=== PATIENT | female | born 1995 | race Caucasian/White ===

== ENCOUNTER 2020-08-31 01:14 | Inpatient (IN) | payer MEDICAID ==
[~2020-08-31] VITALS: Ht 152.4 cm; Wt 70.0 kg
[2020-08-31] VITALS (13 sets, daily range): BP systolic 114–159; BP diastolic 57–86
[2020-08-31] MEDS ORDERED: azithromycin/NS 500mg/250ml 250 ML IV ONE (01:50)
[2020-08-31] MEDS ORDERED: normal saline 1000ML IV soln IV ONE (01:50)
[2020-08-31] MEDS ORDERED: dexamethasone sod phosphate 10mg/ml inj IV ONE (01:55)
[2020-08-31 02:00] LABS: BASOPHILS # (AUTO) 0.1 X10'3 (0-0.2); BASOPHILS % (AUTO) 0.4 % (0-1); EOSINOPHILS # (AUTO) 0.3 X10'3 (0-0.9); EOSINOPHILS % (AUTO) 1.6 % (0-6); LYMPHOCYTES # (AUTO) 3.4 X10'3 (1.1-4.8); LYMPHOCYTES % (AUTO) 19.2 % (21-51); MEAN CORPUSCULAR HEMOGLOBIN 28.5 PG (27.0-31.0); MEAN CORPUSCULAR VOLUME 86.2 FL (78-98); MEAN PLATELET VOLUME 7.5 FL (7.4-10.4); MONOCYTES # (AUTO) 0.6 X10'3 (0-0.9); MONOCYTES % (AUTO) 3.5 % (2-12); NEUTROPHILS # (AUTO) 13.2 X10'3 (1.8-7.7); NEUTROPHILS % (AUTO) 75.3 % (42-75); PLATELET COUNT 477 X10'3 (140-440); RED BLOOD COUNT 2.43 X10'6 (4.20-5.60); WHITE BLOOD COUNT 17.5 X10'3 (4.5-11.0)
[2020-08-31 02:11] LABS: HEMATOCRIT 20.9 % (35.0-45.0); HEMOGLOBIN 6.9 g/dl (12.0-16.0)
[2020-08-31] MEDS ORDERED: iohexol 350MG/ML 100ml bottle IV ONE (02:12)
[2020-08-31 02:30] LABS: ALANINE AMINOTRANSFERASE 22 U/L (12-78); ALBUMIN 3.4 G/DL (3.4-5.0); ALBUMIN/GLOBULIN RATIO 1.1 (1.1-1.5); ALKALINE PHOSPHATASE 82 IU/L (46-116); ANION GAP 10 (8-16); ASPARTATE AMINO TRANSFERASE 20 U/L (10-37); BLOOD UREA NITROGEN 17 MG/DL (7-18); BUN/CREATININE RATIO 19.5 (6.6-38.0); CALCIUM 8.6 MG/DL (8.5-10.1); CHLORIDE 105 MMOL/L (99-107); CREATININE 0.87 MG/DL (0.40-0.90); GLUCOSE 160 MG/DL (70-104); POTASSIUM 3.1 MMOL/L (3.5-5.1); SODIUM 141 MMOL/L (135-145); TOTAL CARBON DIOXIDE 26.1 MMOL/L (24-32); TOTAL PROTEIN 6.4 G/DL (6.4-8.2); eGFR 81 ML/MIN
[2020-08-31 02:44] LABS: C-REACTIVE PROTEIN 1.22 MG/DL (0.0-0.5); FERRITIN 66 NG/ML (8-252); LACTATE DEHYDROGENASE 411 U/L (81-234); MAGNESIUM 1.8 MG/DL (1.5-2.4)
[2020-08-31 03:36] LABS: HCG SERUM QL NEGATIVE
[2020-08-31] MEDS ORDERED: NO HOME MEDS (03:44)
[2020-08-31] MEDS ORDERED: normal saline 1000ML IV soln IVB ONE (03:45)
[2020-08-31] MEDS ORDERED: potassium Cl 20 mEq SR tablet PO PRN (04:15)
[2020-08-31] MEDS: normal saline 1000ml 1,000 ML IV SCH ×2 (04:15→12:50)
[2020-08-31] MEDS ORDERED: magnesium hydroxide 30ml (MOM) UD suspension PO PRN (04:15)
[2020-08-31] MEDS ORDERED: ondansetron/PF 4mg/2ml inj IV PRN (04:15)
[2020-08-31] MEDS ORDERED: acetaminophen 325mg tablet PO PRN ×2 (04:15)
[2020-08-31] MEDS ORDERED: magnesium 4gm in 100ml NS 100 ML IV PRN (04:15)
[2020-08-31] MEDS ORDERED: ipratropium/albuterol 3ml nebule NEB PRN (04:15)
[2020-08-31] MEDS ORDERED: magnesium 2GM in 50ml NS 50 ML IV PRN (04:15)
[2020-08-31] MEDS ORDERED: potassium Cl 40MEQ/1/2NS 520ml 520 ML IV PRN ×2 (04:15)
[2020-08-31] MEDS ORDERED: HYDROcodone/acetaminophen 10/325mg tab PO PRN (04:15)
[2020-08-31] MEDS ORDERED: HYDROcodone/acetaminophen 5mg/325mg tablet PO PRN (04:15)
[2020-08-31 05:41] LABS: % IRON SATURATION 8 % (11-46); IRON 22 UG/DL (49-151); TOTAL IRON BINDING CAPACITY 277 UG/DL (259-388)
[2020-08-31 05:49] LABS: RED BLOOD COUNT 2.44 X10'6 (4.20-5.60); RETICULOCYTE % (AUTO) 7.8 % (0.5-1.5)
[2020-08-31 06:02] LABS: ETHANOL < 0.010 GM/DL (0.0-0.010)
[2020-08-31 06:03] LABS: PARTIAL THROMBOPLASTIN TIME 20 SECONDS (22-32)
--- NOTE | 2020-08-31 06:44 | NUR ---
as per linda rn report dr rankin cancelled the order for iv maintence fluid at 100 ml/hr as pt is already receving the bld transfusion.
[2020-08-31] MEDS: CefTRIAXone/D5W-Rocephin 1gm 50 ML IV SCH (07:41)
[2020-08-31] MEDS: oseltamivir phos 75mg capsule PO SCH (07:42)
[2020-08-31] MEDS: potassium Cl 20 mEq SR tablet PO PRN ×2 (07:43→15:07)
[2020-08-31] MEDS: K and/or MAG REPLACEMENT MC SCH ×2 (07:57→20:00)
[2020-08-31] MEDS ORDERED: dexamethasone inj 6 MG in normal saline 100ml IV soln 100 ML IV SCH (08:00)
[2020-08-31 09:37] LABS: BASOPHILS # (AUTO) 0.1 X10'3 (0-0.2); BASOPHILS % (AUTO) 0.4 % (0-1); EOSINOPHILS % (AUTO) 0 % (0-6); HEMATOCRIT 33.9 % (35.0-45.0); LYMPHOCYTES % (AUTO) 5.7 % (21-51); MEAN CORPUSCULAR HEMOGLOBIN 28.2 PG (27.0-31.0); MEAN CORPUSCULAR HGB CONC 32.6 g/dL (33.0-36.5); MEAN CORPUSCULAR VOLUME 86.6 FL (78-98); MEAN PLATELET VOLUME 8.5 FL (7.4-10.4); MONOCYTES # (AUTO) 0.3 X10'3 (0-0.9); MONOCYTES % (AUTO) 1.7 % (2-12); NEUTROPHILS # (AUTO) 16.4 X10'3 (1.8-7.7); NEUTROPHILS % (AUTO) 92.2 % (42-75); PLATELET COUNT 458 X10'3 (140-440); RED BLOOD COUNT 3.91 X10'6 (4.20-5.60); RED CELL DISTRIBUTION WIDTH 13.4 % (11.5-14.5); WHITE BLOOD COUNT 17.8 X10'3 (4.5-11.0)
--- NOTE | 2020-08-31 10:04 | NUR ---
Patient in room ED 2. I have received report from ER nurse and had the opportunity to ask questions and assume patient care.
[2020-08-31 10:17] LABS: ALANINE AMINOTRANSFERASE 21 U/L (12-78); ALBUMIN 3.4 G/DL (3.4-5.0); ALBUMIN/GLOBULIN RATIO 1.1 (1.1-1.5); ALKALINE PHOSPHATASE 81 IU/L (46-116); ANION GAP 11 (8-16); ASPARTATE AMINO TRANSFERASE 26 U/L (10-37); BLOOD UREA NITROGEN 13 MG/DL (7-18); BUN/CREATININE RATIO 19.7 (6.6-38.0); CALCIUM 8.3 MG/DL (8.5-10.1); CHLORIDE 110 MMOL/L (99-107); CREATININE 0.66 MG/DL (0.40-0.90); GLUCOSE 157 MG/DL (70-104); POTASSIUM 3.9 MMOL/L (3.5-5.1); SODIUM 144 MMOL/L (135-145); TOTAL CARBON DIOXIDE 22.8 MMOL/L (24-32); TOTAL PROTEIN 6.5 G/DL (6.4-8.2); eGFR > 90 ML/MIN
[2020-08-31] MEDS: DEXAMETHASONE 6 MG TABLET PO SCH (15:07)
--- NOTE | 2020-08-31 18:43 | NUR ---
Patient report given, questions answered & plan of care reviewed with KIANA Hannah. Pt resting comfortably. No c/o SOB. O2sat drop to mid 80s with exertion.
[2020-08-31] MEDS: mag hydrox/Alum hydrox/simeth 30ml oral suspension PO PRN (19:12)
[2020-08-31] MEDS: lactobacillus rhamnosus 10,000 MMU CELLS/CAPSULE PO SCH (20:43)
[2020-08-31] MEDS ORDERED: temazepam 15mg capsule PO PRN (21:00)
[2020-09-01] MEDS: normal saline 1000ml 1,000 ML IV SCH ×3 (00:07→19:19)
[2020-09-01 05:48] LABS: BASOPHILS # (AUTO) 0.1 X10'3 (0-0.2); BASOPHILS % (AUTO) 0.6 % (0-1); EOSINOPHILS % (AUTO) 0.1 % (0-6); HEMATOCRIT 29.3 % (35.0-45.0); HEMOGLOBIN 9.7 g/dl (12.0-16.0); LYMPHOCYTES # (AUTO) 2.8 X10'3 (1.1-4.8); LYMPHOCYTES % (AUTO) 12.9 % (21-51); MEAN CORPUSCULAR HEMOGLOBIN 28.8 PG (27.0-31.0); MEAN CORPUSCULAR VOLUME 87.3 FL (78-98); MEAN PLATELET VOLUME 8.3 FL (7.4-10.4); MONOCYTES # (AUTO) 1.2 X10'3 (0-0.9); MONOCYTES % (AUTO) 5.4 % (2-12); NEUTROPHILS # (AUTO) 17.6 X10'3 (1.8-7.7); PLATELET COUNT 436 X10'3 (140-440); RED BLOOD COUNT 3.36 X10'6 (4.20-5.60); WHITE BLOOD COUNT 21.8 X10'3 (4.5-11.0)
[2020-09-01 06:17] LABS: ALANINE AMINOTRANSFERASE 22 U/L (12-78); ALBUMIN 3.5 G/DL (3.4-5.0); ALBUMIN/GLOBULIN RATIO 1.1 (1.1-1.5); ALKALINE PHOSPHATASE 72 IU/L (46-116); ANION GAP 10 (8-16); ASPARTATE AMINO TRANSFERASE 25 U/L (10-37); BILIRUBIN,TOTAL 1.1 MG/DL (0.1-1.0); BLOOD UREA NITROGEN 12 MG/DL (7-18); BUN/CREATININE RATIO 22.2 (6.6-38.0); C-REACTIVE PROTEIN 1.56 MG/DL (0.0-0.5); CALCIUM 8.4 MG/DL (8.5-10.1); CHLORIDE 109 MMOL/L (99-107); CHOL/HDL RATIO 3.6 (0.00-4.99); CHOLESTEROL 171 MG/DL (0-200); CREATININE 0.54 MG/DL (0.40-0.90); GLUCOSE 119 MG/DL (70-104); HDL CHOLESTEROL 47 MG/DL (35-60); LACTATE DEHYDROGENASE 674 U/L (81-234); LDL CHOLESTEROL 109 MG/DL (50-100); MAGNESIUM 2.1 MG/DL (1.5-2.4); POTASSIUM 4.1 MMOL/L (3.5-5.1); SODIUM 143 MMOL/L (135-145); TOTAL CARBON DIOXIDE 23.6 MMOL/L (24-32); TOTAL PROTEIN 6.7 G/DL (6.4-8.2); TRIGLYCERIDES 167 MG/DL (20-135); eGFR > 90 ML/MIN
--- NOTE | 2020-09-01 06:32 | NUR ---
Problems reprioritized. Patient report given, questions answered & plan of care reviewed with MYAH. Addendum: 09/01/20 at 0633 by Deion Bay RN Amended: Links added.
--- NOTE | 2020-09-01 06:38 | NUR ---
Patient in room [facility]. I have received report from KIANA Hannah and had the opportunity to ask questions and assume patient care.
[2020-09-01 07:00] VITALS: BP 114/61
[2020-09-01 07:28] LABS: D-DIMER 1.88 MG/L FEU (0-0.50)
[2020-09-01] MEDS: K and/or MAG REPLACEMENT MC SCH ×2 (08:00→20:00)
[2020-09-01] MEDS: CefTRIAXone/D5W-Rocephin 1gm 50 ML IV SCH (08:30)
[2020-09-01] MEDS: mag hydrox/Alum hydrox/simeth 30ml oral suspension PO PRN ×3 (08:30→17:14)
[2020-09-01] MEDS: azithromycin 250mg tablet PO SCH (08:31)
[2020-09-01] MEDS: oseltamivir phos 75mg capsule PO SCH (08:31)
[2020-09-01] MEDS: lactobacillus rhamnosus 10,000 MMU CELLS/CAPSULE PO SCH ×2 (08:31→19:18)
[2020-09-01] MEDS: DEXAMETHASONE 6 MG TABLET PO SCH (08:31)
--- NOTE | 2020-09-01 12:05 | NUR ---
Malnutrition Consult: Pt admit w/ normal strength, no edema/wounds, PO 75-100% avg regular diet so far, and no scaled wt yet this admit. At this time pt does not meet minimum malnutrition criteria. To f/u 09/05 for initial assessment. Addendum: 09/01/20 at [address] Amended: Links added.
[2020-09-01] MEDS: guaiFENesin/codeine phos 10ml UD oral syrup PO PRN ×2 (13:02→19:18)
[2020-09-01 13:03] VITALS: BP 118/74
[2020-09-01 18:00] VITALS: BP 115/67
--- NOTE | 2020-09-01 18:33 | NUR ---
Problems reprioritized. Patient report given, questions answered & plan of care reviewed with KIANA Atkins.
[2020-09-02] VITALS: BP 123/73
--- NOTE | 2020-09-02 04:47 | NUR ---
Pt appeared hot when entering room. Checked temp at 98.0.
[2020-09-02] MEDS: guaiFENesin/codeine phos 10ml UD oral syrup PO PRN ×2 (04:48→09:50)
--- NOTE | 2020-09-02 06:15 | NUR ---
Problems reprioritized. Patient report given, questions answered & plan of care reviewed with KIANA Sandoval.
--- NOTE | 2020-09-02 06:17 | NUR ---
Patient in room [facility]. I have received report from KIANA Atkins and had the opportunity to ask questions and assume patient care.
[2020-09-02 06:25] LABS: BASOPHILS # (AUTO) 0.1 X10'3 (0-0.2); BASOPHILS % (AUTO) 0.4 % (0-1); EOSINOPHILS # (AUTO) 0.2 X10'3 (0-0.9); EOSINOPHILS % (AUTO) 0.7 % (0-6); HEMATOCRIT 28.6 % (35.0-45.0); HEMOGLOBIN 9.4 g/dl (12.0-16.0); LYMPHOCYTES # (AUTO) 5.2 X10'3 (1.1-4.8); LYMPHOCYTES % (AUTO) 23.2 % (21-51); MEAN CORPUSCULAR HEMOGLOBIN 29.2 PG (27.0-31.0); MEAN CORPUSCULAR HGB CONC 32.9 g/dL (33.0-36.5); MEAN CORPUSCULAR VOLUME 88.6 FL (78-98); MEAN PLATELET VOLUME 7.7 FL (7.4-10.4); MONOCYTES # (AUTO) 1.3 X10'3 (0-0.9); MONOCYTES % (AUTO) 5.8 % (2-12); NEUTROPHILS # (AUTO) 15.5 X10'3 (1.8-7.7); NEUTROPHILS % (AUTO) 69.9 % (42-75); PLATELET COUNT 464 X10'3 (140-440); RED BLOOD COUNT 3.23 X10'6 (4.20-5.60); WHITE BLOOD COUNT 22.2 X10'3 (4.5-11.0)
[2020-09-02 06:28] LABS: ALANINE AMINOTRANSFERASE 20 U/L (12-78); ALBUMIN 3.5 G/DL (3.4-5.0); ALBUMIN/GLOBULIN RATIO 1.1 (1.1-1.5); ALKALINE PHOSPHATASE 67 IU/L (46-116); ANION GAP 10 (8-16); ASPARTATE AMINO TRANSFERASE 12 U/L (10-37); BILIRUBIN,TOTAL 0.9 MG/DL (0.1-1.0); BLOOD UREA NITROGEN 14 MG/DL (7-18); BUN/CREATININE RATIO 21.9 (6.6-38.0); C-REACTIVE PROTEIN 0.61 MG/DL (0.0-0.5); CALCIUM 8.4 MG/DL (8.5-10.1); CHLORIDE 107 MMOL/L (99-107); CREATININE 0.64 MG/DL (0.40-0.90); GLUCOSE 90 MG/DL (70-104); LACTATE DEHYDROGENASE 543 U/L (81-234); POTASSIUM 3.4 MMOL/L (3.5-5.1); SODIUM 144 MMOL/L (135-145); TOTAL CARBON DIOXIDE 26.6 MMOL/L (24-32); TOTAL PROTEIN 6.6 G/DL (6.4-8.2); eGFR > 90 ML/MIN
[2020-09-02 06:31] LABS: D-DIMER 6.04 MG/L FEU (0-0.50)
[2020-09-02] MEDS: CefTRIAXone/D5W-Rocephin 1gm 50 ML IV SCH (07:49)
[2020-09-02] MEDS: DEXAMETHASONE 6 MG TABLET PO SCH (07:49)
[2020-09-02] MEDS: oseltamivir phos 75mg capsule PO SCH (07:49)
[2020-09-02] MEDS: azithromycin 250mg tablet PO SCH (07:49)
[2020-09-02] MEDS: lactobacillus rhamnosus 10,000 MMU CELLS/CAPSULE PO SCH ×2 (07:49→20:21)
[2020-09-02] MEDS: normal saline 1000ml 1,000 ML IV SCH ×3 (07:51→20:00)
[2020-09-02 07:55] VITALS: BP 106/63
[2020-09-02] MEDS: mag hydrox/Alum hydrox/simeth 30ml oral suspension PO PRN (07:59)
[2020-09-02] MEDS: K and/or MAG REPLACEMENT MC SCH ×2 (08:00→20:09)
[2020-09-02 09:41] LABS: NUCLEATED RED BLOOD CELLS 4 /100WBC (0-0); TOTAL CELLS COUNTED 100
[2020-09-02 09:50] LABS: PLATELET ESTIMATE NORMAL
[2020-09-02] MEDS: potassium Cl 20 mEq SR tablet PO PRN ×2 (09:50→20:22)
[2020-09-02 09:51] LABS: POLYCHROMASIA FEW
[2020-09-02 10:34] LABS: ABG BASE EXCESS -4.2 mmol/L (-2.0-2.0); ABG HCO3 19.5 mmol/L (22.0-26.0); ABG OXYGEN SATURATION 94.1 % (94-97); ABG PCO2 (T) 30.8 mmHg (32.0-45.0); ABG PO2 (T) 69.3 mmHg (75.0-100.0); ALLEN'S TEST POSITIVE; FCOHb 0.2 % (0.0-3.9); FLOW 5 L/min; FMetHb 0.3 % (0.0-1.5); FO2Hb 93.6 % (94-97); TOTAL HEMOGLOBIN 9.6 G/dl (12.0-16.0)
[2020-09-02] MEDS ORDERED: iohexol 350MG/ML 100ml bottle IV ONE (10:38)
[2020-09-02 10:58] VITALS: BP 118/73
--- NOTE | 2020-09-02 12:16 | NUR ---
[facility] and pill bottle famotidine. Phone physician assistant primary care given to patient but educated patient that she is not able to keep in room and will need DrClara's order. Patient states that she normally takes famotidine 20mg once a day and maalox is not as helpful. Dr. Montiel notified. Pill bottle sent to be stored in pharmacy.
[2020-09-02] MEDS: famotidine 20mg tablet PO SCH (12:56)
[2020-09-02] MEDS ORDERED: heparin 10,000 units/1 ML INJ IV ONE (14:05)
[2020-09-02 14:59] LABS: PARTIAL THROMBOPLASTIN TIME 22 SECONDS (22-32)
[2020-09-02] MEDS: heparin 25,000 UNIT/250ml bag 250 ML IV SCH ×2 (15:36→23:42)
--- NOTE | 2020-09-02 16:41 | NUR ---
c2 tactical analysis technician in with patient.
[2020-09-02 18:00] VITALS: BP 113/66
--- NOTE | 2020-09-02 18:36 | NUR ---
Problems reprioritized. Patient report given, questions answered & plan of care reviewed with KIANA Fry.
--- NOTE | 2020-09-02 19:25 | NUR ---
Patient in room [facility]. I have received report from KIANA Sandoval and had the opportunity to ask questions and assume patient care, I also have a orientee KIANA Morejon
--- NOTE | 2020-09-02 19:31 | NUR ---
Patient in room [facility]. I have received report from KIANA Sandoval and had the opportunity to ask questions and assume patient care.
[2020-09-02] MEDS: heparin 10,000 units/1 ML INJ IV PRN (23:33)
[2020-09-03] VITALS: BP 120/57
[2020-09-03] MEDS: potassium Cl 20 mEq SR tablet PO PRN (01:22)
--- NOTE | 2020-09-03 06:47 | NUR ---
Problems reprioritized. Patient report given, questions answered & plan of care reviewed with KIANA Saenz.
--- NOTE | 2020-09-03 06:48 | NUR ---
I agree with KIANA Morejon (Orientee) documentation and report that was given to KIANA Saenz
--- NOTE | 2020-09-03 06:53 | NUR ---
Patient in room [facility]. I have received report from Darleen BRUNO and had the opportunity to ask questions and assume patient care.
[2020-09-03 07:00] VITALS: BP 111/67
[2020-09-03 07:07] LABS: BASOPHILS # (AUTO) 0.2 X10'3 (0-0.2); BASOPHILS % (AUTO) 0.8 % (0-1); EOSINOPHILS # (AUTO) 0.2 X10'3 (0-0.9); EOSINOPHILS % (AUTO) 0.9 % (0-6); HEMATOCRIT 28.2 % (35.0-45.0); HEMOGLOBIN 9.2 g/dl (12.0-16.0); LYMPHOCYTES # (AUTO) 7.3 X10'3 (1.1-4.8); LYMPHOCYTES % (AUTO) 31.7 % (21-51); MEAN CORPUSCULAR HEMOGLOBIN 28.4 PG (27.0-31.0); MEAN CORPUSCULAR HGB CONC 32.5 g/dL (33.0-36.5); MEAN CORPUSCULAR VOLUME 87.5 FL (78-98); MEAN PLATELET VOLUME 7.9 FL (7.4-10.4); MONOCYTES # (AUTO) 1.4 X10'3 (0-0.9); MONOCYTES % (AUTO) 6.2 % (2-12); NEUTROPHILS # (AUTO) 13.9 X10'3 (1.8-7.7); NEUTROPHILS % (AUTO) 60.4 % (42-75); PLATELET COUNT 460 X10'3 (140-440); RED BLOOD COUNT 3.22 X10'6 (4.20-5.60); RED CELL DISTRIBUTION WIDTH 14.1 % (11.5-14.5)
[2020-09-03 07:20] LABS: D-DIMER 4.62 MG/L FEU (0-0.50)
[2020-09-03 07:25] LABS: ALANINE AMINOTRANSFERASE 16 U/L (12-78); ALBUMIN 3.3 G/DL (3.4-5.0); ALBUMIN/GLOBULIN RATIO 1.1 (1.1-1.5); ALKALINE PHOSPHATASE 66 IU/L (46-116); ANION GAP 12 (8-16); ASPARTATE AMINO TRANSFERASE 10 U/L (10-37); BLOOD UREA NITROGEN 11 MG/DL (7-18); BUN/CREATININE RATIO 18.3 (6.6-38.0); C-REACTIVE PROTEIN 1.95 MG/DL (0.0-0.5); CALCIUM 8.6 MG/DL (8.5-10.1); CHLORIDE 106 MMOL/L (99-107); GLUCOSE 88 MG/DL (70-104); LACTATE DEHYDROGENASE 451 U/L (81-234); MAGNESIUM 2.1 MG/DL (1.5-2.4); POTASSIUM 3.7 MMOL/L (3.5-5.1); SODIUM 141 MMOL/L (135-145); TOTAL CARBON DIOXIDE 22.6 MMOL/L (24-32); TOTAL PROTEIN 6.3 G/DL (6.4-8.2); eGFR > 90 ML/MIN
[2020-09-03] MEDS: lactobacillus rhamnosus 10,000 MMU CELLS/CAPSULE PO SCH ×2 (07:52→19:59)
[2020-09-03] MEDS: oseltamivir phos 75mg capsule PO SCH (07:53)
[2020-09-03] MEDS: DEXAMETHASONE 6 MG TABLET PO SCH (07:53)
[2020-09-03] MEDS: famotidine 20mg tablet PO SCH (07:53)
[2020-09-03] MEDS: azithromycin 250mg tablet PO SCH (07:53)
[2020-09-03] MEDS: CefTRIAXone/D5W-Rocephin 1gm 50 ML IV SCH (07:54)
[2020-09-03] MEDS: K and/or MAG REPLACEMENT MC SCH ×2 (08:00→20:00)
[2020-09-03] MEDS: heparin 25,000 UNIT/250ml bag 250 ML IV SCH ×4 (08:01→20:02)
[2020-09-03 08:02] LABS: ANISOCYTOSIS 1+; PLATELET ESTIMATE INCREASED; POLYCHROMASIA 1+; TOTAL CELLS COUNTED 100
[2020-09-03] MEDS: normal saline 1000ml 1,000 ML IV SCH ×2 (08:02→19:59)
[2020-09-03 11:00] VITALS: BP 108/68
[2020-09-03 12:00] VITALS: BP 108/68
[2020-09-03] MEDS: heparin 10,000 units/1 ML INJ IV PRN ×2 (13:09→20:00)
--- NOTE | 2020-09-03 13:15 | NUR ---
Heparin bolus and rate increased 2 units per protocol, verified by second RN.
--- NOTE | 2020-09-03 14:00 | NUR ---
Per call to Pharmacy, Pharmacy clarification order, titration done at 1310.
[2020-09-03 18:00] VITALS: BP 114/67
--- NOTE | 2020-09-03 18:20 | NUR ---
Patient in room [facility]. I have received report from Letty BRUNO and had the opportunity to ask questions and assume patient care.
--- NOTE | 2020-09-03 18:30 | NUR ---
Problems reprioritized. Patient report given, questions answered & plan of care reviewed with Betty BURNO.
[2020-09-04 00:47] VITALS: BP 107/62
--- NOTE | 2020-09-04 03:00 | NUR ---
attempted to get lab draw from pt. at 0210. unable to successfully get blood. RN attempted twice. two other RNs attempted to get blood as well. 0300 able to get another RN into the room to successfully draw the pt's blood. will continue to monitor.
[2020-09-04 03:48] LABS: BASOPHILS # (AUTO) 0.2 X10'3 (0-0.2); BASOPHILS % (AUTO) 0.8 % (0-1); EOSINOPHILS # (AUTO) 0.1 X10'3 (0-0.9); EOSINOPHILS % (AUTO) 0.6 % (0-6); HEMATOCRIT 30.6 % (35.0-45.0); HEMOGLOBIN 9.9 g/dl (12.0-16.0); LYMPHOCYTES % (AUTO) 26.6 % (21-51); MEAN CORPUSCULAR HEMOGLOBIN 28.3 PG (27.0-31.0); MEAN CORPUSCULAR HGB CONC 32.4 g/dL (33.0-36.5); MEAN CORPUSCULAR VOLUME 87.4 FL (78-98); MONOCYTES # (AUTO) 1.6 X10'3 (0-0.9); MONOCYTES % (AUTO) 5.9 % (2-12); NEUTROPHILS # (AUTO) 17.4 X10'3 (1.8-7.7); NEUTROPHILS % (AUTO) 66.1 % (42-75); PLATELET COUNT 497 X10'3 (140-440); RED CELL DISTRIBUTION WIDTH 14.4 % (11.5-14.5)
[2020-09-04 03:54] LABS: WHITE BLOOD COUNT 26.3 X10'3 (4.5-11.0)
--- NOTE | 2020-09-04 04:04 | NUR ---
[address]. Admit 08/31 +Flu, Right Pulmonary Embolism. Critical WBC of 26.3 up from 23. Getting Sarah. FYI. Surg Betty RN [id number]
[2020-09-04 04:09] LABS: ALANINE AMINOTRANSFERASE 21 U/L (12-78); ALBUMIN 3.7 G/DL (3.4-5.0); ALBUMIN/GLOBULIN RATIO 1.1 (1.1-1.5); ALKALINE PHOSPHATASE 71 IU/L (46-116); ANION GAP 12 (8-16); ASPARTATE AMINO TRANSFERASE 10 U/L (10-37); BILIRUBIN,TOTAL 1.5 MG/DL (0.1-1.0); BLOOD UREA NITROGEN 15 MG/DL (7-18); BUN/CREATININE RATIO 21.1 (6.6-38.0); C-REACTIVE PROTEIN 1.38 MG/DL (0.0-0.5); CALCIUM 8.9 MG/DL (8.5-10.1); CHLORIDE 104 MMOL/L (99-107); CREATININE 0.71 MG/DL (0.40-0.90); GLUCOSE 91 MG/DL (70-104); LACTATE DEHYDROGENASE 455 U/L (81-234); MAGNESIUM 2.1 MG/DL (1.5-2.4); POTASSIUM 3.7 MMOL/L (3.5-5.1); SODIUM 140 MMOL/L (135-145); TOTAL CARBON DIOXIDE 24.2 MMOL/L (24-32); TOTAL PROTEIN 7.1 G/DL (6.4-8.2); eGFR > 90 ML/MIN
[2020-09-04] MEDS: heparin 25,000 UNIT/250ml bag 250 ML IV SCH ×4 (04:14→20:24)
--- NOTE | 2020-09-04 05:20 | NUR ---
Problems reprioritized. Patient report given, questions answered & plan of care reviewed with Mili BRUNO.
[2020-09-04 07:00] VITALS: BP 122/63
--- NOTE | 2020-09-04 07:06 | NUR ---
Patient in room [facility]. I have received report from eBtty BRUNO and had the opportunity to ask questions and assume patient care.
[2020-09-04] MEDS: K and/or MAG REPLACEMENT MC SCH ×2 (08:00→20:00)
[2020-09-04 08:38] LABS: D-DIMER 6.94 MG/L FEU (0-0.50)
[2020-09-04] MEDS: azithromycin 250mg tablet PO SCH (09:52)
[2020-09-04] MEDS: oseltamivir phos 75mg capsule PO SCH (09:52)
[2020-09-04] MEDS: CefTRIAXone/D5W-Rocephin 1gm 50 ML IV SCH (09:52)
[2020-09-04] MEDS: famotidine 20mg tablet PO SCH (09:52)
[2020-09-04] MEDS: lactobacillus rhamnosus 10,000 MMU CELLS/CAPSULE PO SCH ×2 (09:52→22:28)
[2020-09-04] MEDS: normal saline 1000ml 1,000 ML IV SCH (09:58)
[2020-09-04 11:00] VITALS: BP 95/44
[2020-09-04 16:38] LABS: HIV ANTIBODY 1&2 RAPID NON-REACTIVE (Neg)
--- NOTE | 2020-09-04 18:58 | NUR ---
Problems reprioritized. Patient report given, questions answered & plan of care reviewed with Audrey Ventura RN.
--- NOTE | 2020-09-04 18:59 | NUR ---
Patient in room [facility]. I have received report from HUNTER BRUNO and had the opportunity to ask questions and assume patient care.
[2020-09-04 20:00] VITALS: BP 107/58
[2020-09-04] MEDS: heparin 10,000 units/1 ML INJ IV PRN (20:22)
[2020-09-05] VITALS: BP 109/59
[2020-09-05 03:55] LABS: D-DIMER 4.45 MG/L FEU (0-0.50)
--- NOTE | 2020-09-05 04:20 | NUR ---
PAGEDiane BETANCUR WAS INFORMED OF CRITICAL DVT PTT 112 AND FOLLOWED PROTOCOL FOR HEPARIN DRIP.
[2020-09-05] MEDS: heparin 25,000 UNIT/250ml bag 250 ML IV SCH ×3 (06:12→17:14)
[2020-09-05 06:27] LABS: BASOPHILS # (AUTO) 0.1 X10'3 (0-0.2); BASOPHILS % (AUTO) 0.5 % (0-1); EOSINOPHILS # (AUTO) 0.3 X10'3 (0-0.9); EOSINOPHILS % (AUTO) 1.5 % (0-6); HEMATOCRIT 30.1 % (35.0-45.0); HEMOGLOBIN 9.9 g/dl (12.0-16.0); MEAN CORPUSCULAR HEMOGLOBIN 28.8 PG (27.0-31.0); MEAN CORPUSCULAR VOLUME 87.2 FL (78-98); MEAN PLATELET VOLUME 7.6 FL (7.4-10.4); MONOCYTES % (AUTO) 5.3 % (2-12); NEUTROPHILS % (AUTO) 61.7 % (42-75); PLATELET COUNT 470 X10'3 (140-440); RED BLOOD COUNT 3.45 X10'6 (4.20-5.60); RED CELL DISTRIBUTION WIDTH 14.6 % (11.5-14.5); WHITE BLOOD COUNT 19.4 X10'3 (4.5-11.0)
[2020-09-05 06:30] VITALS: BP 109/59
--- NOTE | 2020-09-05 06:30 | NUR ---
Problems reprioritized. Patient report given, questions answered & plan of care reviewed with POLLO RN.
--- NOTE | 2020-09-05 06:30 | NUR ---
Patient in room [facility]. I have received report from Audrey Ventura RN and had the opportunity to ask questions and assume patient care.
[2020-09-05 06:41] LABS: ALANINE AMINOTRANSFERASE 29 U/L (12-78); ALBUMIN 3.4 G/DL (3.4-5.0); ALBUMIN/GLOBULIN RATIO 1.1 (1.1-1.5); ALKALINE PHOSPHATASE 71 IU/L (46-116); ANION GAP 1 (8-16); ASPARTATE AMINO TRANSFERASE 14 U/L (10-37); BILIRUBIN,TOTAL 0.9 MG/DL (0.1-1.0); BLOOD UREA NITROGEN 12 MG/DL (7-18); BUN/CREATININE RATIO 16.2 (6.6-38.0); C-REACTIVE PROTEIN 1.09 MG/DL (0.0-0.5); CHLORIDE 105 MMOL/L (99-107); CREATININE 0.74 MG/DL (0.40-0.90); GLUCOSE 84 MG/DL (70-104); LACTATE DEHYDROGENASE 382 U/L (81-234); MAGNESIUM 2.2 MG/DL (1.5-2.4); POTASSIUM 3.9 MMOL/L (3.5-5.1); SODIUM 132 MMOL/L (135-145); TOTAL CARBON DIOXIDE 25.9 MMOL/L (24-32); TOTAL PROTEIN 6.6 G/DL (6.4-8.2); eGFR > 90 ML/MIN
[2020-09-05] MEDS: famotidine 20mg tablet PO SCH (08:00)
[2020-09-05] MEDS: K and/or MAG REPLACEMENT MC SCH ×2 (08:00→19:16)
[2020-09-05] MEDS ORDERED: normal saline 1000ml 1,000 ML IV SCH (08:10)
[2020-09-05] MEDS: lactobacillus rhamnosus 10,000 MMU CELLS/CAPSULE PO SCH ×2 (11:11→19:58)
[2020-09-05] MEDS: CefTRIAXone/D5W-Rocephin 1gm 50 ML IV SCH (11:13)
[2020-09-05 12:00] VITALS: BP 110/58
[2020-09-05] MEDS ORDERED: benzocaine/menthol oral lozeng 1 EACH BOX MM PRN (12:15)
--- NOTE | 2020-09-05 13:31 | NUR ---
Great appetite, 100% PO intake. No nutrition problem. Recommend: 1. continue regular diet 2. bowel care as needed 3. wt per rx Addendum: 09/05/20 at [address] Amended: Links added.
--- NOTE | 2020-09-05 18:25 | NUR ---
Problems reprioritized. Patient report given, questions answered & plan of care reviewed with Audrey Ventura RN.
--- NOTE | 2020-09-05 18:30 | NUR ---
Patient in room [facility]. I have received report from POLLO BRUNO and had the opportunity to ask questions and assume patient care.
[2020-09-05 19:23] LABS: BASOPHILS # (AUTO) 0.2 X10'3 (0-0.2); BASOPHILS % (AUTO) 0.7 % (0-1); EOSINOPHILS # (AUTO) 0.3 X10'3 (0-0.9); EOSINOPHILS % (AUTO) 1.3 % (0-6); HEMATOCRIT 32.8 % (35.0-45.0); HEMOGLOBIN 10.7 g/dl (12.0-16.0); LYMPHOCYTES # (AUTO) 6.1 X10'3 (1.1-4.8); LYMPHOCYTES % (AUTO) 23.7 % (21-51); MEAN CORPUSCULAR HEMOGLOBIN 28.4 PG (27.0-31.0); MEAN CORPUSCULAR HGB CONC 32.7 g/dL (33.0-36.5); MEAN CORPUSCULAR VOLUME 86.7 FL (78-98); MEAN PLATELET VOLUME 8.1 FL (7.4-10.4); MONOCYTES # (AUTO) 1.3 X10'3 (0-0.9); NEUTROPHILS # (AUTO) 17.8 X10'3 (1.8-7.7); NEUTROPHILS % (AUTO) 69.3 % (42-75); PLATELET COUNT 555 X10'3 (140-440); RED BLOOD COUNT 3.79 X10'6 (4.20-5.60); RED CELL DISTRIBUTION WIDTH 14.3 % (11.5-14.5)
[2020-09-05 19:25] LABS: ALBUMIN 3.9 G/DL (3.4-5.0); ANION GAP 12 (8-16); BLOOD UREA NITROGEN 14 MG/DL (7-18); BUN/CREATININE RATIO 17.7 (6.6-38.0); CALCIUM 9.3 MG/DL (8.5-10.1); CHLORIDE 101 MMOL/L (99-107); CREATININE 0.79 MG/DL (0.40-0.90); GLUCOSE 132 MG/DL (70-104); POTASSIUM 3.7 MMOL/L (3.5-5.1); SODIUM 137 MMOL/L (135-145); TOTAL CARBON DIOXIDE 24.2 MMOL/L (24-32); eGFR 90 ML/MIN
[2020-09-05 19:27] LABS: WHITE BLOOD COUNT 25.7 X10'3 (4.5-11.0)
--- NOTE | 2020-09-05 19:35 | NUR ---
PAGED DR. BETANCUR AND CALLED BACK WAS INFORMED OF CRITICAL WBC 25.7 NO NEW ORDERS MADE.
[2020-09-05 20:00] VITALS: BP 125/71
[2020-09-05 20:28] LABS: ANISOCYTOSIS 1+; PLATELET ESTIMATE INCREASED; POLYCHROMASIA 1+; TOTAL CELLS COUNTED 100
[2020-09-06] VITALS: BP 113/59
[2020-09-06] MEDS: heparin 25,000 UNIT/250ml bag 250 ML IV SCH ×2 (00:36→09:53)
--- NOTE | 2020-09-06 06:15 | NUR ---
Patient in room [facility]. I have received report from Audrey Ventura RN and had the opportunity to ask questions and assume patient care.
--- NOTE | 2020-09-06 06:26 | NUR ---
Problems reprioritized. Patient report given, questions answered & plan of care reviewed with POLLO RN.
[2020-09-06 06:30] VITALS: BP 99/95
[2020-09-06 07:14] LABS: MAGNESIUM 2.2 MG/DL (1.5-2.4)
--- NOTE | 2020-09-06 07:39 | NUR ---
#[id number] CRITICAL DVT/PTT 109. PAGEDiane AWAITING CALL BACK. HOLDING INFUSION FOR TWO HOURS PER PROTOCOL.
[2020-09-06 08:43] LABS: BASOPHILS # (AUTO) 0.2 X10'3 (0-0.2); BASOPHILS % (AUTO) 0.8 % (0-1); EOSINOPHILS # (AUTO) 0.4 X10'3 (0-0.9); EOSINOPHILS % (AUTO) 1.7 % (0-6); HEMATOCRIT 31.4 % (35.0-45.0); LYMPHOCYTES # (AUTO) 4.9 X10'3 (1.1-4.8); LYMPHOCYTES % (AUTO) 23.8 % (21-51); MEAN CORPUSCULAR HEMOGLOBIN 28.1 PG (27.0-31.0); MEAN CORPUSCULAR HGB CONC 31.8 g/dL (33.0-36.5); MEAN CORPUSCULAR VOLUME 88.2 FL (78-98); MEAN PLATELET VOLUME 8.4 FL (7.4-10.4); MONOCYTES % (AUTO) 4.7 % (2-12); NEUTROPHILS # (AUTO) 14.3 X10'3 (1.8-7.7); PLATELET COUNT 466 X10'3 (140-440); RED BLOOD COUNT 3.56 X10'6 (4.20-5.60); RED CELL DISTRIBUTION WIDTH 14.4 % (11.5-14.5); WHITE BLOOD COUNT 20.7 X10'3 (4.5-11.0)
[2020-09-06 09:05] LABS: ALANINE AMINOTRANSFERASE 45 U/L (12-78); ALBUMIN 3.6 G/DL (3.4-5.0); ALBUMIN/GLOBULIN RATIO 1.1 (1.1-1.5); ALKALINE PHOSPHATASE 84 IU/L (46-116); ANION GAP 14 (8-16); ASPARTATE AMINO TRANSFERASE 22 U/L (10-37); BILIRUBIN,TOTAL 0.7 MG/DL (0.1-1.0); BLOOD UREA NITROGEN 14 MG/DL (7-18); BUN/CREATININE RATIO 19.7 (6.6-38.0); CHLORIDE 103 MMOL/L (99-107); CREATININE 0.71 MG/DL (0.40-0.90); GLUCOSE 95 MG/DL (70-104); POTASSIUM 3.9 MMOL/L (3.5-5.1); SODIUM 140 MMOL/L (135-145); TOTAL CARBON DIOXIDE 23.2 MMOL/L (24-32); TOTAL PROTEIN 6.9 G/DL (6.4-8.2); eGFR > 90 ML/MIN
[2020-09-06] MEDS: K and/or MAG REPLACEMENT MC SCH ×2 (09:16→20:00)
[2020-09-06 09:35] LABS: TOTAL CELLS COUNTED 100
[2020-09-06 09:37] LABS: PLATELET ESTIMATE INCREASED; POLYCHROMASIA 1+
[2020-09-06 09:38] LABS: BURR CELLS FEW; HYPOCHROMASIA 1+; STOMATOCYTES FEW; TEAR DROP CELLS FEW
[2020-09-06] MEDS: famotidine 20mg tablet PO SCH (09:51)
[2020-09-06] MEDS: lactobacillus rhamnosus 10,000 MMU CELLS/CAPSULE PO SCH ×2 (09:51→21:39)
[2020-09-06] MEDS: CefTRIAXone/D5W-Rocephin 1gm 50 ML IV SCH (09:55)
[2020-09-06 11:00] VITALS: BP 110/63
[2020-09-06] MEDS: pantoprazole 40mg Tablet.DR PO SCH (13:21)
--- NOTE | 2020-09-06 18:50 | NUR ---
Problems reprioritized. Patient report given, questions answered & plan of care reviewed with Miriam RN.
[2020-09-06 19:30] VITALS: BP 107/87
--- NOTE | 2020-09-06 19:30 | NUR ---
pt states she has had "very tiny" amt of blood tinged sputum; denies SOB Addendum: 09/07/20 at 0106 by Gila Thao RN Amended: Links added.
[2020-09-06] MEDS: apixaban 5mg tablet PO SCH (21:40)
[2020-09-07] VITALS: BP 119/62
--- NOTE | 2020-09-07 06:00 | NUR ---
Patient in room [facility]. I have received report from KIANA Pineda and had the opportunity to ask questions and assume patient care.
[2020-09-07 06:48] LABS: BASOPHILS # (AUTO) 0.1 X10'3 (0-0.2); BASOPHILS % (AUTO) 0.4 % (0-1); EOSINOPHILS # (AUTO) 0.3 X10'3 (0-0.9); EOSINOPHILS % (AUTO) 1.3 % (0-6); HEMATOCRIT 32.8 % (35.0-45.0); HEMOGLOBIN 10.5 g/dl (12.0-16.0); LYMPHOCYTES # (AUTO) 3.6 X10'3 (1.1-4.8); LYMPHOCYTES % (AUTO) 18.4 % (21-51); MEAN CORPUSCULAR HEMOGLOBIN 27.5 PG (27.0-31.0); MEAN CORPUSCULAR HGB CONC 31.9 g/dL (33.0-36.5); MEAN CORPUSCULAR VOLUME 86.3 FL (78-98); MEAN PLATELET VOLUME 7.8 FL (7.4-10.4); MONOCYTES # (AUTO) 1.1 X10'3 (0-0.9); MONOCYTES % (AUTO) 5.6 % (2-12); NEUTROPHILS # (AUTO) 14.7 X10'3 (1.8-7.7); NEUTROPHILS % (AUTO) 74.3 % (42-75); PLATELET COUNT 479 X10'3 (140-440); WHITE BLOOD COUNT 19.8 X10'3 (4.5-11.0)
[2020-09-07 07:00] VITALS: BP 111/63
[2020-09-07 07:12] LABS: ALANINE AMINOTRANSFERASE 59 U/L (12-78); ALBUMIN 3.7 G/DL (3.4-5.0); ALKALINE PHOSPHATASE 96 IU/L (46-116); ANION GAP 12 (8-16); ASPARTATE AMINO TRANSFERASE 19 U/L (10-37); BILIRUBIN,TOTAL 0.7 MG/DL (0.1-1.0); BLOOD UREA NITROGEN 16 MG/DL (7-18); BUN/CREATININE RATIO 22.9 (6.6-38.0); CALCIUM 9.4 MG/DL (8.5-10.1); CHLORIDE 100 MMOL/L (99-107); GLUCOSE 90 MG/DL (70-104); MAGNESIUM 2.1 MG/DL (1.5-2.4); POTASSIUM 3.9 MMOL/L (3.5-5.1); SODIUM 136 MMOL/L (135-145); TOTAL CARBON DIOXIDE 23.8 MMOL/L (24-32); TOTAL PROTEIN 7.3 G/DL (6.4-8.2); eGFR > 90 ML/MIN
[2020-09-07] MEDS: apixaban 5mg tablet PO SCH (07:50)
[2020-09-07] MEDS: lactobacillus rhamnosus 10,000 MMU CELLS/CAPSULE PO SCH (07:50)
[2020-09-07] MEDS: CefTRIAXone/D5W-Rocephin 1gm 50 ML IV SCH (07:50)
[2020-09-07] MEDS: pantoprazole 40mg Tablet.DR PO SCH (07:50)
[2020-09-07] MEDS: K and/or MAG REPLACEMENT MC SCH (08:00)
[2020-09-07] MEDS ORDERED: APIX5TAB3 PO (10:15)
--- NOTE | 2020-09-07 10:26 | NUR ---
Per MD, hold discharge until Coag studies return.
[2020-09-07 11:00] VITALS: BP 125/50
--- NOTE | 2020-09-07 16:00 | NUR ---
Pagelinda Michael; [address], Jorden Deluca. You stated to hold pt until coag studies had returned. Per Lab the studies could take several days, did you want to keep her? Masud, surg, [phone]
--- NOTE | 2020-09-07 16:25 | NUR ---
Paged MD Michael; 351[address], Jorden Deluca. You stated to hold pt d/c unti studies had returned. Per Lab the studies could take days, did you want to keep her? Masud, surg, [id number]
--- NOTE | 2020-09-07 18:28 | NUR ---
Problems reprioritized. Patient report given, questions answered & plan of care reviewed with KIANA Arriola.
--- NOTE | 2020-09-07 18:45 | NUR ---
Patient in room [facility]. I have received report from Sabiha BRUNO and had the opportunity to ask questions and assume patient care.
--- NOTE | 2020-09-07 19:00 | NUR ---
Patients' ride is here. Both S/L dc'd with cannulas intact. Patient has gathered all of her belongings and is now being escorted down to lobby via W/C. Clarification as to need to pickle pumper the mirian marin from [facility] [address]. Addendum: 09/07/20 at 2242 by Zeinab Gramajo RN Patient fully alert and oriented and in no pain or distress. Looking forward to going home.
--- NOTE | 2020-09-09 15:57 | NUR ---
CASE MANAGEMENT DISCHARGE FOLLOW UP: Attempt to contact pt via phone, left voicemail requesting call back.
[2020-09-10 08:32] LABS: ANTITHROMBIN ACTIVITY 129 % (75-135); ANTITHROMBIN ANTIGEN 89 % (72-124); PROTEIN S, FREE 111 % (57-157); PROTEIN S, TOTAL 101 % (60-150)
== END 2020-09-07 19:07 | disposition home or self-care (01) | DRG 134 ==
LOC: ER 01:15 → ED HOLD 04:12 → SUR 3N 10:15
PROVIDERS: ADMIT Family Medicine; ATTEND Family Medicine
PROC: 30233N1 Transfusion of Nonautologous Red Blood Cells into Peripheral Vein, Percutaneous Approach (ICD-10-PCS; principal; 2020-08-31)
PROC: B32T1ZZ Computerized Tomography (CT Scan) of Left Pulmonary Artery using Low Osmolar Contrast (ICD-10-PCS; 2020-08-31)
PROC: B32S1ZZ Computerized Tomography (CT Scan) of Right Pulmonary Artery using Low Osmolar Contrast (ICD-10-PCS; 2020-08-31)
PROC: B3201ZZ Computerized Tomography (CT Scan) of Thoracic Aorta using Low Osmolar Contrast (ICD-10-PCS; 2020-08-31)
PROC: B3201ZZ Computerized Tomography (CT Scan) of Thoracic Aorta using Low Osmolar Contrast (ICD-10-PCS; 2020-09-02)
PROC: B32T1ZZ Computerized Tomography (CT Scan) of Left Pulmonary Artery using Low Osmolar Contrast (ICD-10-PCS; 2020-09-02)
PROC: B32S1ZZ Computerized Tomography (CT Scan) of Right Pulmonary Artery using Low Osmolar Contrast (ICD-10-PCS; 2020-09-02)
DX: I26.99 Other pulmonary embolism without acute cor pulmonale (principal); J18.9 Pneumonia, unspecified organism; J96.01 Acute respiratory failure with hypoxia; N92.0 Excessive and frequent menstruation with regular cycle; D62 Acute posthemorrhagic anemia; E87.6 Hypokalemia; Z20.822 Contact with and (suspected) exposure to COVID-19; F12.90 Cannabis use, unspecified, uncomplicated; K85.90 Acute pancreatitis without necrosis or infection, unspecified; D68.59 Other primary thrombophilia; R04.2 Hemoptysis; R63.0 Anorexia; Z90.49 Acquired absence of other specified parts of digestive tract; Z68.30 Body mass index [BMI] 30.0-30.9, adult; Z79.01 Long term (current) use of anticoagulants
CPT/HCPCS: 36415; 36430; 36600; 71045; 71275; 80048; 80053; 80061; 80320; 81479; 82728; 82803; 83540; 83550; 83605; 83615; 83735; 83880; 83891; 83894; 83898; 84145; 84443; 84484; 84703; 85007; 85018; 85025; 85045; 85300; 85301; 85303; 85305; 85306; 85379; 85384; 85610; 85651; 85730; 86140; 86146; 86147; 86703; 86738; 86885; 86900; 86901; 86920; 87040; 87081; 87502; 87503; 87635; 93005; 93306; 93970; 94667; 94668; 94760; 96365; 97161; 99291; C9803; G0378; J0456; J0696; J1100; J1644; J2405; J7030; J8540; P9016; Q9967

== ENCOUNTER 2020-09-12 16:53 | Emergency (ER) | payer MEDICAID ==
[~2020-09-12] VITALS: Ht 152.4 cm; Wt 70.5 kg
[~2020-09-12 16:53] MED LIST: APIX5TAB3 PO
[2020-09-12 18:09] LABS: RED CELL DISTRIBUTION WIDTH 14.6 % (11.5-14.5)
[2020-09-12 18:12] LABS: BASOPHILS # (AUTO) 0.1 X10'3 (0-0.2); BASOPHILS % (AUTO) 0.3 % (0-1); EOSINOPHILS # (AUTO) 0.2 X10'3 (0-0.9); EOSINOPHILS % (AUTO) 0.9 % (0-6); LYMPHOCYTES # (AUTO) 2.5 X10'3 (1.1-4.8); MEAN CORPUSCULAR HGB CONC 32.3 g/dL (33.0-36.5); MEAN CORPUSCULAR VOLUME 83.5 FL (78-98); MEAN PLATELET VOLUME 7.2 FL (7.4-10.4); NEUTROPHILS # (AUTO) 15.6 X10'3 (1.8-7.7); NEUTROPHILS % (AUTO) 80.8 % (42-75); PLATELET COUNT 459 X10'3 (140-440); RED BLOOD COUNT 1.45 X10'6 (4.20-5.60); WHITE BLOOD COUNT 19.3 X10'3 (4.5-11.0)
[2020-09-12 18:21] LABS: ALANINE AMINOTRANSFERASE 37 U/L (12-78); ALBUMIN 3.4 G/DL (3.4-5.0); ALBUMIN/GLOBULIN RATIO 1.1 (1.1-1.5); ALKALINE PHOSPHATASE 86 IU/L (46-116); ANION GAP 9 (8-16); ASPARTATE AMINO TRANSFERASE 27 U/L (10-37); BILIRUBIN,TOTAL 1.1 MG/DL (0.1-1.0); BLOOD UREA NITROGEN 12 MG/DL (7-18); BUN/CREATININE RATIO 17.9 (6.6-38.0); CALCIUM 8.5 MG/DL (8.5-10.1); CHLORIDE 103 MMOL/L (99-107); CREATININE 0.67 MG/DL (0.40-0.90); GLUCOSE 124 MG/DL (70-104); POTASSIUM 3.4 MMOL/L (3.5-5.1); SODIUM 137 MMOL/L (135-145); TOTAL CARBON DIOXIDE 24.9 MMOL/L (24-32); TOTAL PROTEIN 6.5 G/DL (6.4-8.2); eGFR > 90 ML/MIN
[2020-09-12] MEDS ORDERED: levoFLOXACIN-Levaquin 750MG/D5 150 ML IV ONE (18:25)
[2020-09-12 18:26] LABS: HEMOGLOBIN 3.9 g/dl (12.0-16.0)
[2020-09-12 18:27] LABS: HEMATOCRIT 12.1 % (35.0-45.0)
[2020-09-12 18:34] LABS: D-DIMER 2.03 MG/L FEU (0-0.50)
[2020-09-12 19:22] LABS: BASOPHILS # (AUTO) 0.1 X10'3 (0-0.2); BASOPHILS % (AUTO) 0.6 % (0-1); EOSINOPHILS # (AUTO) 0.2 X10'3 (0-0.9); LYMPHOCYTES # (AUTO) 2.3 X10'3 (1.1-4.8); LYMPHOCYTES % (AUTO) 12.2 % (21-51); MEAN CORPUSCULAR HEMOGLOBIN 26.7 PG (27.0-31.0); MEAN CORPUSCULAR HGB CONC 31.7 g/dL (33.0-36.5); MEAN PLATELET VOLUME 7.4 FL (7.4-10.4); MONOCYTES # (AUTO) 0.8 X10'3 (0-0.9); MONOCYTES % (AUTO) 4.4 % (2-12); NEUTROPHILS # (AUTO) 15.6 X10'3 (1.8-7.7); NEUTROPHILS % (AUTO) 81.8 % (42-75); PLATELET COUNT 436 X10'3 (140-440); RED BLOOD COUNT 1.71 X10'6 (4.20-5.60); RED CELL DISTRIBUTION WIDTH 14.9 % (11.5-14.5)
[2020-09-12] MEDS ORDERED: dexamethasone 4mg/ml inj IV ONE (19:25)
[2020-09-12] MEDS ORDERED: dexamethasone 4mg/ml inj IV SCH (19:25)
[2020-09-12 19:40] LABS: PARTIAL THROMBOPLASTIN TIME 20 SECONDS (22-32)
[2020-09-12 19:47] LABS: HEMATOCRIT 14.4 % (35.0-45.0); HEMOGLOBIN 4.6 g/dl (12.0-16.0)
--- NOTE | 2020-09-12 20:04 | NUR ---
PT PROVIDED BLOODY SPUTUM SAMPLE WITH CLOT. AWARE AND VISULAIZED SPECIMIN
[2020-09-12 20:37] LABS: CLARITY,URINE SLIGHTLY CLOUDY (Clear); COLOR,URINE AMBER (Yellow); GLUCOSE, URINE NEGATIVE (Neg); KETONES,URINE 15 mg/dl (Neg); LEUKOCYTE ESTERASE ,URINE TRACE (Neg); NITRITES, URINE NEGATIVE (Neg); OCCULT BLOOD,URINE NEGATIVE (Neg); PH,URINE 5.5 (4.8-8.0); PROTEIN,URINE NEGATIVE (Neg); UROBILINOGEN,URINE 0.2 E.U/dL (0.2-1.0)
[2020-09-12 20:41] LABS: UA COLLECTION TYPE CLN CATCH MIDSTREAM
[2020-09-12 20:54] LABS: BACTERIA,URINE 1+ /HPF (Neg); RBC,URINE 0-2 /HPF (0-2); SQUAMOUS EPITHELIAL CELL,UR FEW /LPF (FEW); WBC,URINE 0-4 /HPF (0-4)
[2020-09-12 21:58] VITALS: BP 104/57
[2020-09-12] MEDS ORDERED: OMEP-50 PO (22:03)
[2020-09-12] MEDS ORDERED: ondansetron/PF 4mg/2ml inj IV ONE (22:15)
[2020-09-12 22:16] VITALS: BP 113/57
[2020-09-12] MEDS ORDERED: acetaminophen 325mg tablet PO ONE (22:40)
[2020-09-12 23:10] LABS: ABSOLUTE RETICS # 198702 /CUMM (23000-93000)
[2020-09-12 23:11] LABS: RETICULOCYTE % (AUTO) 11.6 % (0.5-1.5)
[2020-09-12 23:16] VITALS: BP 111/62
[2020-09-13] MEDS ORDERED: dexamethasone 4mg/ml inj IV SCH
[2020-09-13] MEDS ORDERED: iohexol 350MG/ML 100ml bottle IV ONE (00:10)
[2020-09-13 00:15] VITALS: BP 106/64
[2020-09-13 01:35] VITALS: BP 105/60
[2020-09-13 01:45] VITALS: BP 120/65
[2020-09-13 02:15] VITALS: BP 106/67
[2020-09-13 03:01] VITALS: BP 106/63
--- NOTE | 2020-09-13 03:02 | NUR ---
VOEW TRANSFUSION DOCEMENTATION FOR VITAL SIGN DOCUMENTATION FROM 2200 TP 0300
[2020-09-13 04:19] LABS: LACTATE DEHYDROGENASE 575 U/L (81-234)
--- NOTE | 2020-09-13 04:48 | NUR ---
Uzma WITH [facility] CALLED FOR NURSE TO NURSE REPORT.
[2020-09-13 04:50] LABS: HEMATOCRIT 24.8 % (35.0-45.0); MEAN CORPUSCULAR HGB CONC 32.4 g/dL (33.0-36.5); MEAN CORPUSCULAR VOLUME 83.5 FL (78-98); MEAN PLATELET VOLUME 7.5 FL (7.4-10.4); PLATELET COUNT 376 X10'3 (140-440); RED BLOOD COUNT 2.97 X10'6 (4.20-5.60); RED CELL DISTRIBUTION WIDTH 15.8 % (11.5-14.5); WHITE BLOOD COUNT 20.4 X10'3 (4.5-11.0)
--- NOTE | 2020-09-13 05:37 | NUR ---
PT IS GOING TO [facility] RM [address] [facility] [address] [place]
[2020-09-13 08:45] VITALS: BP 94/45
== END 2020-09-13 09:15 | disposition short-term general hospital (02) ==
LOC: ER 16:54
DX: R06.00 Dyspnea, unspecified (principal); Z20.828 Contact with and (suspected) exposure to other viral communicable diseases; J18.9 Pneumonia, unspecified organism; D64.9 Anemia, unspecified; J40 Bronchitis, not specified as acute or chronic; F12.90 Cannabis use, unspecified, uncomplicated; Z79.899 Other long term (current) drug therapy; Z86.711 Personal history of pulmonary embolism; Z90.49 Acquired absence of other specified parts of digestive tract
CPT/HCPCS: 36415; 36430; 71046; 71275; 74177; 80053; 81001; 83605; 83615; 83880; 85025; 85027; 85045; 85379; 85384; 85610; 85730; 86885; 86900; 86901; 86920; 87040; 87088; 87635; 96365; 96375; 99291; C9803; J1100; J1956; J2405; P9016; Q9967; 99285

== ENCOUNTER 2021-09-15 20:14 | Emergency (ER) | payer MEDICAID ==
[~2021-09-15 20:14] MED LIST changes: +OMEP-50 PO
== END 2021-09-16 00:48 | disposition left against medical advice (07) ==
LOC: ER 20:16
DX: R07.9 Chest pain, unspecified (principal); Z53.21 Procedure and treatment not carried out due to patient leaving prior to being seen by health care provider
CPT/HCPCS: 93005

== ENCOUNTER 2021-09-23 22:45 | Emergency (ER) | payer MEDICAID ==
[~2021-09-23] VITALS: Ht 152.4 cm; Wt 82.0 kg
[2021-09-24] MEDS ORDERED: LORazepam 1 MG tablet PO ONE (03:05)
[2021-09-24] MEDS ORDERED: LORA-269 PO (03:28)
[2021-09-24 03:49] VITALS: BP 105/66
== END 2021-09-24 03:51 | disposition home or self-care (01) ==
LOC: ER 22:45
DX: F41.9 Anxiety disorder, unspecified (principal); R00.2 Palpitations; R07.89 Other chest pain; R05.9 Cough, unspecified; Z87.01 Personal history of pneumonia (recurrent); Z86.711 Personal history of pulmonary embolism; F12.90 Cannabis use, unspecified, uncomplicated; Z90.89 Acquired absence of other organs; Z79.899 Other long term (current) drug therapy
CPT/HCPCS: 93005; 99283